=== PATIENT | male | born 1945 | race Caucasian/White ===

== ENCOUNTER → 2021-03-10 | Outpatient (CLI) | payer MEDICARE, OTHER ==
[2021-03-10 11:27] LABS: Basophils % (A) 0 %; Eosinophils # (A) 0.3 k/uL (0-0.7); Eosinophils % (A) 4 %; HCT 45.9 % (39.0-53.0); HGB 15.7 gm/dL (13.0-17.5); Lymphocytes # (A) 1.6 k/uL (1.0-4.8); Lymphocytes % (A) 21 %; MCH 34.3 pg (25.0-35.0); MCHC 34.3 g/dL (31.0-37.0); MCV 100.1 fL (80.0-100.0); Mean Platelet Volume 7.5; Monocytes # (A) 0.5 k/uL (0-1.0); Monocytes % (A) 6 %; Neutrophils # (A) 4.9 k/uL (1.3-7.7); Neutrophils % (A) 66 %; Platelet Count 199 k/uL (150-450); RBC 4.58 m/uL (4.30-5.90); RDW 12.4 % (11.5-15.5); WBC 7.3 k/uL (3.8-10.6)
[2021-03-10 11:36] LABS: Calcium 9.4 mg/dL (8.4-10.2); Potassium 4.8 mmol/L (3.5-5.1)
[2021-03-10 12:10] LABS: Appearance,Urine Clear (Clear); Bilirubin,Urine Negative (Negative); Blood,Urine Large (Negative); Color,Urine Light Yellow; Glucose,Urine (UA) Negative (Negative); Hyaline Casts,Urine 1 /lpf (0-2); Ketones,Urine Negative (Negative); Leukocyte Esterase,Urine Negative (Negative); Nitrite,Urine Negative (Negative); PH, Urine 5.5 (5.0-8.0); Protein,Urine Negative (Negative); RBC,Urine 119 /hpf (0-5); Specific Gravity,Urine 1.008 (1.001-1.035); Urobilinogen,Urine <2.0 mg/dL (<2.0); WBC,Urine 1 /hpf (0-5)
== END | disposition home or self-care (01) ==
LOC: LABPAT 11:01
PROVIDERS: ATTEND Urology
DX: Z01.812 Encounter for preprocedural laboratory examination (principal); D49.4 Neoplasm of unspecified behavior of bladder; R31.0 Gross hematuria
CPT/HCPCS: 80048; 81001; 85025; 87086

== ENCOUNTER 2021-03-17 12:55 | Day surgery (SDC) | payer MEDICARE ==
[2021-03-15 13:33] VITALS: BMI 27.6
--- NOTE | 2021-03-17 08:51 | P.HPIHPCON ---
History of Present Illness H&P Date: 03/14/21 Chief Complaint: bladder tumor This is a 75 yo male with hx of gross hematuria, he underwent and office cystoscopy which showed evidence of bladder tumor. Discussed with him given this finding recommend proceeding with TURBT. Discussed with him risk of bleeding, infection and bladder perforation . Discussed with him will evaluate the upper tract at time of TURBT with bilateral RP. Discussed with him the option of doing intravesicle Gemcitibine. Discussed benefit would be to reduce cancer recurrence. discussed risk of chemotherapy with him. He understood all risks and agreed to proceed with TURBT, bilateral RP and intravesicle chemotherapy installation Consent for Procedure: I have explained the operation/procedure to the patient, including the risks, benefits, side effects, alternative therapies (including not receiving the prop osed treatment or service), the likelihood of the patient achieving his/her goals, and potential recuperation problems for the procedure/sedation/analgesia, as well as any blood products, if indicated. I also explained to the patient the risks, benefits and side effects of the alternatives, as well as the risks related to not receiving the proposed procedure, care, treatment, or services. Past Medical History Past Medical History: GERD/Reflux, Hyperlipidemia, Hypertension Additional Past Medical History / Comment(s): hx of mild leaky mitral valve, has ruptured right hamstring History of Any Multi-Drug Resistant Organisms: None Reported Past Surgical History: Orthopedic Surgery Additional Past Surgical History / Comment(s): cataract surg., hand surg., right knee surg. Past Anesthesia/Blood Transfusion Reactions: No Reported Reaction Past Alcohol Use History: Daily Past Drug Use History: None Reported - Past Family History Mother Family Medical History: No Reported History Medications and Allergies Home Medications Medication Instructions Recorded Confirmed Type Aspirin 81 mg PO DAILY 03/19/14 03/15/21 History Bisoprolol-Hctz 2.5-6.25 mg [Ziac 1 each PO DAILY 03/19/14 03/15/21 History 2.5-6.25 MG] Lansoprazole [Prevacid] 30 mg PO DAILY 03/19/14 03/15/21 History Multivitamin [Men's Multi-Vitamin] 1 each PO DAILY 03/19/14 03/15/21 History Simvastatin [Zocor] 40 mg PO HS 03/19/14 03/15/21 History ramipriL [Altace] 10 mg PO DAILY 03/19/14 03/15/21 History Acetaminophen Tab [Tylenol Tab] 500 mg PO BID 03/15/21 03/15/21 History Naproxen Sodium [Aleve] 220 mg PO DAILY 03/15/21 03/15/21 History Vit C/E/Zn/Coppr/Lutein/Zeaxan 1 each PO BID 03/15/21 03/15/21 History [Preservision Areds 2 Softgel] Allergies Allergy/AdvReac Type Severity Reaction Status Date / Time No Known Allergies Allergy Verified 03/15/21 13:00 Surgical - Exam - General well developed, well nourished, no pain - Eyes PERRL, normal ocular movement - ENT normal nares, normal mucosa - Respiratory normal expansion, normal respiratory effort - Psychiatric oriented to time, oriented to person, oriented to place
[~2021-03-17 12:55] MED LIST: DEXAMETHASONE SOD PHOSPHATE 4 MG/ML 1 ML VIAL IV ONE; LACTATED RINGERS 1,000 ML IV SCH; LIDOCAINE 1% (10MG/ML) FOR IV START INTRADERMA PRN; ONDANSETRON 4 MG/2 ML VIAL IVP ONE
[2021-03-17] MEDS ORDERED: ONDANSETRON 4 MG/2 ML VIAL ONE (13:27)
[2021-03-17] MEDS ORDERED: ePHEDrine SULFATE/0.9% NACL/PF 50 MG/5 ML SYRINGE IV ONE (13:40)
[2021-03-17] MEDS ORDERED: LIDOCAINE 1% INJ 10MG/ML (20 ML MDV) ONE (13:40)
[2021-03-17] MEDS ORDERED: NEOSTIGMINE 1 MG/ML 10 ML VIAL ONE (13:40)
[2021-03-17] MEDS ORDERED: MIDAZOLAM 2 MG/2 ML VIAL ONE (13:40)
[2021-03-17] MEDS ORDERED: SUCCINYLCHOLINE CHLORIDE 100 MG/5 ML SYR IV ONE (13:40)
[2021-03-17] MEDS ORDERED: PROPOFOL 10 MG/ML 20 ML VIAL IV ONE (13:40)
[2021-03-17] MEDS ORDERED: GLYCOPYRROLATE 0.2 MG/ML 2 ML VIAL ONE (13:40)
[2021-03-17] MEDS ORDERED: ROCURONIUM 10 MG/ML (5 ML VIAL) IV ONE (13:40)
[2021-03-17] MEDS ORDERED: fentaNYL (PF) 50 MCG/ML 2 ML AMP ONE (13:40)
[2021-03-17 13:45] VITALS: TEMP 97.6
[2021-03-17] MEDS ORDERED: IOPAMIDOL-370 50ML BTL MISCELLANE ONE (13:45)
--- NOTE | 2021-03-17 14:41 | FL ---
EXAMINATION TYPE: FL guidance operating room DATE OF EXAM: 03/17/2021 CLINICAL HISTORY: Bladder tumor. TECHNIQUE: Fluoroscopy. COMPARISON: None. FINDINGS: Fluoroscopic guidance was provided during cystoscopy with retrograde urogram procedure per formed by Dr. Norton. A total of 60 seconds of fluoroscopic time was utilized during the procedure a nd 8 spot images are acquired. Images acquired show contrast opacification of bilateral ureters and c ollecting systems. IMPRESSION: As Above.
--- NOTE | 2021-03-17 15:06 | P.OP ---
Date of Procedure: 03/17/21 Preoperative Diagnosis: Bladder tumor Postoperative Diagnosis: Same Procedure(s) Performed: Cystoscopy, TURBT (medium), bilateral RP, instillation of intravesical chemotherapy Implants: None Anesthesia: AISHAA Surgeon: José Arreola Estimated Blood Loss (ml): 10 Pathology: other (Bladder tumor) Condition: stable Disposition: PACU Indications for Procedure: This is a 75 yo male with hx of gross hematuria, he underwent and office cystoscopy which showed evidence of bladder tumor. Discussed with him given this finding recommend proceeding with TURBT. Discussed with him risk of bleeding, infection and bladder perforation . Discussed with him will evaluate the upper tract at time of TURBT with bilateral RP. Discussed with him the option of doing intravesicle Gemcitibine. Discussed benefit would be to reduce cancer recurrence. discussed risk of chemotherapy with him. He understood all risks and agreed to proceed with TURBT, bilateral RP and intravesicle chemotherapy installatio Operative Findings: 3 cm bladder tumor along the posterior bladder wall Description of Procedure: Patient was brought to the operating room, general anesthesia was induced. He was prepped and draped in sterile fashion and placed in dorsal lithotomy position. Cystoscopy fitted with a 22-Jamaican sheath was inserted per urethra, cystoscopy was performed which showed evidence of a 3 cm posterior wall bladder tumor, no additional bladder tumors. Patient had an enlarge prostate, with a high median bar, moderately treabeculated bladder Attention was then carried to the ureteral orifice was intubated with a 6-Jamaican open-ended catheter, retrograde pyelogram was performed which showed no filling defect or hydronephrosis on the right, retrograde Polygram was performed on the left using the 6-Jamaican open-ended catheter which showed no filling defect or hydronephrosis. At this time the cystoscope was withdrawn and I attempted to pass the resectoscope through the meatus, but patient had meatal narrowing. At this time the meatus was dilated to 30-Jamaican using the claudia male sounds. Next the resectoscope was inserted through the urethra and advanced into the bladder. The bladder tumor was visualized, and resected down to muscle. The total area of resection measured approximately 3 cm, the area of resection was thoroughly fulgurated. All tumor chips were irrigated out. Repeat cystoscopy showed no additional specimen within the bladder or any additional tumors. There was no evidence of bladder perforation. Next the cystoscope was withdrawn and a 20-Jamaican Jameson was inserted with return of clear urine. Gemcitabine chemotherapy was instilled through the catheter, total 2 g mixed in 50 mL of saline was inserted into the bladder. The catheter was clamped, and recovery nurses were advised to drain the bladder in approximately one hour. Patient tolerated the procedure well was taken to PACU in stable condition
[2021-03-17 16:15] VITALS: RESP 16
[2021-03-17 17:02] VITALS: BP 152/88; PULSE 68
== END 2021-03-17 17:04 | disposition home or self-care (01) ==
LOC: OR 12:55
PROVIDERS: ATTEND Urology
DX: D49.4 Neoplasm of unspecified behavior of bladder (principal); I10 Essential (primary) hypertension; E78.5 Hyperlipidemia, unspecified; Z85.51 Personal history of malignant neoplasm of bladder; K21.9 Gastro-esophageal reflux disease without esophagitis; Z87.898 Personal history of other specified conditions
CPT/HCPCS: 52235; 76705; C1758; C1769; J2250; J1100; J2710; J0690; J2405; J2001; J3010; J0330; J2704; Q9967; 88307

== ENCOUNTER → 2024-02-29 | Outpatient (CLI) | payer MEDICARE, OTHER ==
[2024-02-29 15:26] LABS: HCT 40.6 % (39.6-50.0); HGB 13.7 g/dL (13.0-17.0); MCH 33.8 pg (27.0-32.0); MCHC 33.7 g/dL (32.0-37.0); MCV 100.2 FL (80.0-97.0); Mean Platelet Volume 9.3 FL (9.5-12.2); NRBC Per 100 WBC 0 X 10*3/uL (0.00-0.01); Platelet Count 225 X 10*3/uL (140-440); RBC 4.05 X 10*6/uL (4.40-5.60); RDW 12.2 % (11.5-14.5); WBC 6.23 X 10*3/uL (4.50-10.00)
[2024-02-29 21:01] LABS: ALT 20 U/L (10-49); AST 28 U/L (14-35); Albumin 4.6 g/dL (3.8-4.9); Alkaline Phosphatase 92 U/L (41-126); BUN/Creat Ratio 25.77 Ratio (12.00-20.00); Blood Urea Nitrogen 33.5 mg/dL (9.0-27.0); Calcium 9.3 mg/dL (8.7-10.3); Carbon Dioxide 23.2 mmol/L (21.6-31.8); Chloride 105 mmol/L (96-109); Chol/HDL Ratio 3.45 Ratio; Globulin 2.3 g/dL (1.6-3.3); Glucose 97 mg/dL (70-110); LDL Cholesterol,Calculated 68.4 mg/dL (0.0-131.0); Potassium 5.5 mmol/L (3.5-5.5); Sodium 138 mmol/L (135-145); Total Bilirubin 0.4 mg/dL (0.3-1.2); Total Protein 6.9 g/dL (6.2-8.2)
[2024-02-29 21:02] LABS: NT-Pro-B-Type Natriuretic Pept 479 pg/mL (0-450)
== END | disposition home or self-care (01) ==
LOC: LABWHC1 09:08
PROVIDERS: ATTEND Student in an Organized Health Care Education/Training Program
DX: I50.9 Heart failure, unspecified (principal); E78.5 Hyperlipidemia, unspecified; E11.22 Type 2 diabetes mellitus with diabetic chronic kidney disease; N18.9 Chronic kidney disease, unspecified
CPT/HCPCS: 36415; 80053; 80061; 83036; 83880; 85027

== ENCOUNTER → 2024-06-02 | Day surgery (SDC) | payer MEDICARE, OTHER ==
[~2024-06-02] MED LIST changes: +ALPRAZolam 0.25 MG TAB PO PRN; +ALPRAZolam 0.5 MG TAB PO PRN; +ATORVASTATIN 80 MG TAB PO STA; -DEXAMETHASONE SOD PHOSPHATE 4 MG/ML 1 ML VIAL IV ONE; -LACTATED RINGERS 1,000 ML IV SCH; -LIDOCAINE 1% (10MG/ML) FOR IV START INTRADERMA PRN; +NITROGLYCERIN SL TABS 0.4 MG TAB SUBLINGUAL PRN; -ONDANSETRON 4 MG/2 ML VIAL IVP ONE; +RX INFO: IV CONTRAST WAS GIVEN 1 EACH MISC MISCELLANE PRN; +SODIUM CHLORIDE 0.9% 1,000 ML IV SCH
[2024-06-02] MEDS: IV FLUID CONTINUATION 1,000 ML IV ONE (12:25)
[2024-06-02] MEDS: SODIUM CHLORIDE 0.9% 1,000 ML in EMPTY BAG 1 BAG IV SCH (12:25)
[2024-06-02] MEDS: ASPIRIN 325 MG TAB PO STA (12:33)
[2024-06-02 12:37] LABS: Basophils % (A) 1 %; Eosinophils # (A) 0.3 k/uL (0-0.7); Eosinophils % (A) 5 %; HCT 38.4 % (39.0-53.0); HGB 12.8 gm/dL (13.0-17.5); Lymphocytes # (A) 1.6 k/uL (1.0-4.8); Lymphocytes % (A) 29 %; MCHC 33.3 g/dL (31.0-37.0); MCV 102.1 fL (80.0-100.0); Macrocytosis Slight; Mean Platelet Volume 6.9; Monocytes # (A) 0.4 k/uL (0-1.0); Monocytes % (A) 7 %; Neutrophils # (A) 3.1 k/uL (1.3-7.7); Neutrophils % (A) 56 %; Platelet Count 219 k/uL (150-450); RBC 3.76 m/uL (4.30-5.90); RDW 12.5 % (11.5-15.5); WBC 5.6 k/uL (3.8-10.6)
[2024-06-02 12:38] VITALS: TEMP 98.1
[2024-06-02 13:01] LABS: African American GFR (CKD) 78 (>60 ml/min/1.73 sqM); Anion Gap 4 mmol/L; Blood Urea Nitrogen 24 mg/dL (9-20); Carbon Dioxide 24 mmol/L (22-30); Chloride 108 mmol/L (98-107); Glucose 99 mg/dL (74-99); Non-African American GFR(CKD) 67 (>60 ml/min/1.73 sqM); Potassium 4.9 mmol/L (3.5-5.1); Sodium 136 mmol/L (137-145)
[2024-06-02] MEDS: HEPARIN SODIUM,PORCINE 10,000 UNIT in SODIUM CHLORIDE 0.9% 1,000 ML IRRIGATION PRN (13:53)
[2024-06-02] MEDS: LIDOCAINE 1% INJ 10MG/ML (20 ML MDV) SQ ONE (13:53)
[2024-06-02] MEDS: MIDAZOLAM 2 MG/2 ML VIAL IVP ONE (13:53)
[2024-06-02] MEDS: fentaNYL (PF) 50 MCG/ML 2 ML AMP IVP ONE (13:53)
[2024-06-02] MEDS: HEPARIN SODIUM,PORCINE (1 ML) 2,500 UNIT in SODIUM CHLORIDE 0.9% 250 ML IRRIGATION PRN (13:53)
[2024-06-02] MEDS: VERAPAMIL SYRINGE (5 MG/10 ML) INTRAARTER ONE (13:56)
[2024-06-02] MEDS: HEPARIN SODIUM 1,000 UN/ML (10ML VL) IV ONE (14:01)
[2024-06-02] MEDS: VERAPAMIL 2.5 MG/ML 2 ML AMP INTRAARTER ONE (14:09)
[2024-06-02] MEDS: IOPAMIDOL-370 100ML BTL INJ ONE (14:17)
--- NOTE | 2024-06-02 14:34 | P.CARDCATH ---
Date of Procedure: 06/02/24 Description of Procedure: DIAGNOSTIC CORONARY ANGIOGRAPHY and LEFT HEART CATH REPORT PROCEDURES PERFORMED: Left heart catheterization Selective coronary angiography Moderate conscious sedation 27 mins Right radial access INDICATION: Abnormal stress test Patient presented to cardiology clinic with symptoms of substernal chest pressure especially when he is doing anything physically active. Due to this symptomatology we will obtain a Lexiscan nuclear stress test for the patient. On the nuclear stress test there was an evidence of inferior wall reversible perfusion defect which was moderate in size and moderate in intensity. For this he was scheduled for outpatient heart catheterization procedure. CONSENT: I have explained the procedural steps of above-mentioned procedures in layman's terms to the patient. I discussed the risks (including but not limited to stroke, emergent vascular or cardiac surgery or ), benefits and alternative therapies for the above-mentioned procedure. I discussed the risks of sedation/analgesia and blood product administration (if indicated). The patient has indicated understanding and acceptance of these risks. Conscious Sedation: Patient's ECG, heart rate, blood pressure, pulse oximetry were monitored throughout the duration of procedure under my direct supervision. [2] mg Versed and [50] mcg Fentanyl were used for induction of moderate conscious sedation. Total duration of moderate concious sedation 27 minutes. PROCEDURE: After explaining the risks, benefits and alternatives of the above mentioned procedures in detail to the patient, informed consent was obtained. Patient was taken to the catheterization lab, prepped and draped in usual sterile fashion using universal precuations. 1% lidocaine was infiltrated over the right radial artery. A 6-Tamazight sheath was placed and secured in the right radial artery using modified Seldinger technique. The sheath was flushed and 5 mg verapamil was administered intra- arterially. There was significant tortuosity noticed at the elbow level and at the subclavian level but it was navigated successfully under fluoroscopy guidance. J tipped wire was advanced under fluoroscopic guidance. Once the wire tip reached aortic root 6000 units of IV heparin was given. JR4 catheter was loaded on the wire and was advanced in the fluoroscopy guidance. With the help of the wire the catheter crossed aortic valve greater than left ventricle. Wire was removed catheter was placed and left ventricular pressures were obtained with pullback under fluoroscopy guidance. Because of the significant tortuosity the JR4 and JL 4 5 Tamazight diagnostic catheters could not be manipulated. For this reason we utilized a 5 Tamazight Lonnie catheter. Lonnie catheter was able to smoothly cross the right subclavian tortuosity. The catheter was used to selectively engage the left coronary ostia. Left coronary angiogram was performed. The catheter was removed and with the help of the wire manipulated to selectively engage the right coronary ostium. Right coronary angiogram was performed after removing the wire and flushing the catheter. Catheter was removed over the wire. Radial sheath was flushed. The right radial sheath was removed and a TR band was placed with excellent patent hemostasis was achieved. The patient tolerated the procedure well. Patient was transported back to the post catheterization holding area in stable condition. Angiographic images were reviewed in detail. HEMODYNAMICS: Aortic Pressure: 128/78 mmHg. LV pressure: 130/10 mmHg. LVEDP 16 mmHg. There was no significant gradient across the aortic valve. SELECTIVE CORONARY ARTERIOGRAPHY: LEFT MAIN: The left main is short and large caliber vessel. It bifurcates into the LAD and circumflex. Left main appears angiographically normal. LEFT ANTERIOR DESCENDING CORONARY ARTERY: LAD is a large caliber vessel which wraps around to the apex. Proximal mid and distal LAD has mild luminal irregularities and is otherwise patent. Mid LAD gives rise to a medium size diagonal branch which appears angiographically patent. LEFT CIRCUMFLEX CORONARY ARTERY: LCx is nondominant but a large caliber vessel. Proximal and mid LCx are patent with mild luminal irregularities. After giving a small AV groove branch it continues to be, large OM1 vessel which is angiographically patent. RIGHT CORONARY ARTERY: Dominant vessel. Large-caliber right coronary artery. Mild diffuse luminal irregularities noticed in proximal mid and distal RCA. It gives rise to a PDA branch which is angiographically patent. IMPRESSION: Angiographically patent coronary arteries with mild luminal irregularities Mild coronary calcification PLAN: Aggressive risk factor modification per most recent ACC/AHA guidelines. 125 cc fluids for 4 hours Discharge home in 4 hours Follow-up in the office in 1-2 weeks. Performing Physician Rishi Torres MD, FACC, RPVI Thank you for allowing [facility] to participate in this patient's care. Feel free to reach out in case of any followup questions.
[2024-06-02 15:41] VITALS: PULSE 60
[2024-06-02 19:10] VITALS: BP 139/67; RESP 16
== END ==
LOC: CATHCVL 11:40
PROVIDERS: ATTEND Student in an Organized Health Care Education/Training Program
DX: I25.10 Atherosclerotic heart disease of native coronary artery without angina pectoris (principal); I10 Essential (primary) hypertension; E78.2 Mixed hyperlipidemia; Z79.02 Long term (current) use of antithrombotics/antiplatelets; Z79.82 Long term (current) use of aspirin; Z79.899 Other long term (current) drug therapy
CPT/HCPCS: 93458; 80048; 85025; 99152; 99153; C1769 ×2; C1894; J2250; J1644 ×3; J2003; J3010; Q9967

== ENCOUNTER → 2025-03-04 | Outpatient (CLI) | payer MEDICARE, OTHER ==
[2025-03-04 09:10] VITALS: BP 126/78; PULSE 78; RESP 16; TEMP 97.9
--- NOTE | 2025-03-04 15:56 | P.PAINPG ---
PQRS Measure Charge Sheet Comment: HISTORY OF PRESENT ILLNESS: A 79 yr old male as a referral from Dr Garrett presents today w severe and chronic groin pain > 1 yr secondary to radiculopathy, spondylosis and facet arthropathy without myelopathy for evaluation. Pt underwent a BL RFA L4-L5, L5- S1 by Dr Thomas in Jun 2023 in [place] where he experienced 75% pain relief x 1 1/2 yrs s/p procedure. Pt states pain level is provoked at 7 /10 in intensity, constant, localized in the lumbar spine, predominantly axial, sharp in character without shooting pain. Pain is provoked by standing from a sitting position. Pain is alleviated by physician guided home stretches 3-4 times weekly since Jul 2024, heat, medications, topical, manual massage, repositioning and rest . Oswestry axial pain score of 33. PMH: OA, GERD, Hyperlipidemia, HTN PSH: Cystoscopy (2020), Cardiac Catheterization (2023), Hand Surgery, Cataract Resection, R Knee Surgery SH: Hx of tobacco use, Daily ETOH use, No illicit drug use FH: Mo- No Reported History All: See list Medications include Lyrica, Tyl, Voltaren Gel REVIEW OF ORGAN SYSTEMS: CONSTITUTIONAL: No fevers or chills. No recent weight loss. NEUROLOGICAL: + numbness and tingling along the distal extremities. No seizure disorders or headaches. MUSCULOSKELETAL: + pain PSYCHIATRIC: Denies current depression or suicidal thoughts. Physical Examinations : Constitutional : Cooperative , not in acute distress . Neurologic : Cranial nerve II to XII intact. No focal neurological deficits. Psychiatric : alert & oriented x 3. Matching mood & appropriate affect. Judgment & insight intact. Musculoskeletal : Cervical Spine Motor strength in the deltoid and biceps: Normal right side. Normal Left side Motor strength biceps and the wrist extensors: Normal right side . Normal left side Motor strength in the triceps muscle: Normal right side. Normal left side Deep tendon reflexes: Normal at the biceps. Normal at Brachioradialis. Normal at triceps Lhermitte Sign (cervical flexion) positive Vertebral body tenderness to deep palpation over Cervical facet loading test: positive bilaterally Spurling test: positive bilaterally Neck distraction test: positive bilaterally Ellyn sign: positive bilaterally Shoulders Muscle bulk/ tone/ strength BL Resisted Internal Rotation positive R / positive L Resisted External Rotation positive R / positive L Empty Can Test positive R / positive L Drop Arm Test positive R / positive L Lumbar spine Motor strength lower extremities ,thigh and legs 5/5 Right side , 5/5 Left side Deep tendon reflexes : Normal Knee Jerk. Normal Ankle Jerk Vertebral body tenderness over Carvajal Test positive Lumbar facet Loading Test: positive Right / positive Left L4-L5, L5-S1 Range of motion of the lumbar spine Flexion 30 degrees, extension 10 degrees Straight Leg Raise test: Left/ Right positive at degrees Drop foot reflex: positive R / positive L Marci test: positive right / positive left. Severe tenderness over the Sacroiliac joint on the Right / Left sides Gaenslen test: positive bilaterally Sacral spine : Severe tenderness over the Sacroiliac joint: right side / left side Range of motion: Flexion of the lumbar spine <60 degrees Range of motion: Extension of the lumbar spine <20 degrees Gaenslen's Test positive Marci test: positive right side / left side Thigh Thrust Test Sacral Thrust Test Hip Joint Antalgic walking gait positive Trendelenburg positive R / positive L Imaging: MRI non contrast lumbar spine from 02/05/25 Assessment/ Plan : Facet arthropathy, Lumbar radiculopathy, [place] spondylosis w Stenosis, L5-S1 anterolisthesis Recommendation of BL RFA L4-L5, L5-S1. Risks, benefits of procedure discussed and patient verbalized understanding. Admits to anti- coagulant use or medical history of diabetes. Protocol for discontinuation/ continuation of medications haylee procedure discussed. Minimal anesthesia provided, if clinically indicated, consisting of Versed and Fentanyl. All questions answered. I have spent greater than 30 minutes on patient care today. Dr Viera was available by phone for the evaluation of this patient. The time was used to review the medical records including relevant urine studies and Prescription history (MAPs), review of the available imaging, evaluation and examination of the patient, coordination of care with the medical staff and if applicable referring physicians, as well as creation of the medical record - Pain Location Bilateral Lower Back Non-Pharmacological Interventions: Heat, Ice, Inactivity, Physical Therapy, Position/Reposition Pharmacological Interventions: Block, Epidural, PRN Medication, Scheduled Medication, Topical Medication PQRS Narrative: Smoking Status Never smoker Home Medications: Ambulatory Orders Lansoprazole [Prevacid] 30 mg PO DAILY 03/19/14 ramipriL [Altace] 10 mg PO BID 03/19/14 Acetaminophen Tab [Tylenol] 500 mg PO BID 03/15/21 Vit C/E/Zn/Coppr/Lutein/Zeaxan [Preservision Areds 2 Softgel] 1 each PO BID Alfuzosin HCl [Alfuzosin HCl ER] 10 mg PO DAILY 05/30/24 Atorvastatin [Lipitor] 40 mg PO HS 05/30/24 Melatonin 5 mg PO HS 05/30/24 Otc Magnesium 400 mg PO HS 05/30/24 amLODIPine [Norvasc] 5 mg PO DAILY 05/30/24 Controlled Substance Measures - Controlled Substance Measures Is patient prescribed a controlled substance at discharge?: No
== END ==
LOC: PNWHC3 08:29
PROVIDERS: ATTEND Specialist
DX: M47.26 Other spondylosis with radiculopathy, lumbar region (principal); M43.17 Spondylolisthesis, lumbosacral region; M48.061 Spinal stenosis, lumbar region without neurogenic claudication
CPT/HCPCS: 99211

== ENCOUNTER 2025-03-10 07:25 | Day surgery (SDC) | payer MEDICARE, OTHER ==
[2025-03-10] MEDS: LACTATED RINGERS 1,000 ML IV SCH (07:48)
[2025-03-10 07:52] VITALS: TEMP 98.3
[2025-03-10] MEDS: IV FLUID CONTINUATION 1,000 ML IV ONE ×2 (07:59→09:25)
[2025-03-10] MEDS ORDERED: ROPIVACAINE 5 MG/ML 30 ML VIAL ONE (08:43)
[2025-03-10] MEDS ORDERED: MIDAZOLAM 2 MG/2 ML VIAL ONE (08:43)
[2025-03-10] MEDS ORDERED: fentaNYL (PF) 50 MCG/ML 2 ML AMP ONE (08:43)
--- NOTE | 2025-03-10 09:34 | P.PCN ---
Description of Procedure: Preprocedure diagnosis. 1. Lumbar spondylosis with facet joint arthropathy without myelopathy. 2. Lumbar degenerative disc disease. Procedure diagnosis. 1. Lumbar spondylosis with facet joint arthropathy without myelopathy. Space 2. Lumbar degenerative disc disease. Procedure.Bilateral radiofrequency thermocoagulation L3, L4 and L5 medial branch, with fluoroscopic guidance (fluoroscopy images are available in the radiology department) (to Denervate the facet joint at bilateral L4- 5 and L5-S1 levels) Anesthesia. Moderate sedation with intravenous Versed 1 mg and fentanyl 50 g and local infiltration with Lidocaine. Continuous pulse OX,BP,EKG and verbal communication was maintained with patient. Time. Start 843. Stop 920. EBL minimal. Procedure indication. The patient with low back pain secondary to lumbar facet arthropathy who he had more than 50% relief of her pain with previous diagnostic lumbar medial branch block with local anesthetics.The patient was seen and identified in the preoperative area. Risks: Benefits, complications, including but not limited to risk of infection, bleeding, ALLERGIC reaction to the medications and no complete pain relief and alternatives were discussed with the patient, the patient admitted to proceed with the procedure and signed the consent. Procedure description/technique. Patient was taken to the OR and timeout was completed. The patient was placed in prone position on the procedure table. The lumbar area was prepped and draped in the usual sterile fashion. After injecting 5 ml of 1% Lidocaine subcutaneously,using AP and then oblique, lateral view of fluoroscopy, 18-gauge 100 mm radiofrequency cannula with a 10 mm active tip was advanced and guided by fluoroscopy at the junction of supirior articular process with RIGHT ala of the sacrum, transverse process of L4&L5. Each site then underwent positive sensory testing with 50 Hz and 0-1 V and negative motor testing at 2.5 Hz and 0-3 V with local stimulation but no radicular symptoms down the leg. Thereafter each sites underwent radiofrequency thermocoagulation at 80C for 90 seconds after injecting 1 mL of preservative- free 0.5% ropivacaine. Repeat radiofrequency ablation was done at each points after rotating the needle 180 with same setting. This same procedure was repeated twice on the LEFT side at the junction of superior articular process with ala of sacrum,transverse process of L4, L5 with the same settings after positive sensory,negative motor stimulation and infilt ration of 1.0 ml 5% Ropivacaine at each site . RF needles were taken out. At the end of the procedure the skin was cleansed and Band-Aids were applied. Disposition patient tolerated the procedure well. No complication. She was placed in supine position and transferred to the recovery area in stable condition for observation and was discharged home from recovery room after meeting discharge criteria. Discharge instructions given to the patient by the staff. The patient were examined prior to discharge the patient will schedule a follow-up in the clinic in 2-4 weeks.
--- NOTE | 2025-03-10 09:39 | FL ---
EXAMINATION TYPE: FL guided pain mgmt statistic DATE OF EXAM: 03/10/2025 HISTORY: Fluoroscopy time Total dose area product (DAP) in uGy*m?, mGy*cm? (or similar): 0.38026 IMPRESSION: 1. Fluoroscopy time. [facility], , 03/10/2025 9:37 AM
[2025-03-10 09:41] VITALS: BP 119/63; PULSE 64; RESP 14
== END 2025-03-10 10:04 | disposition home or self-care (01) ==
LOC: ORPAIN 07:25
PROVIDERS: ATTEND Pain Medicine Interventional Pain Medicine
DX: M47.816 Spondylosis without myelopathy or radiculopathy, lumbar region (principal); M51.360 Other intervertebral disc degeneration, lumbar region with discogenic back pain only
CPT/HCPCS: 64635; 64636; J2250; J3010; J2795; 99152; 99153